=== PATIENT | female | born 1970 | race Caucasian/White ===

== ENCOUNTER 2018-11-05 11:11 | Emergency (ER) | payer MEDICAID, MEDICARE ==
[2018-11-05 11:29] VITALS: BP 121/76
--- NOTE | 2018-11-05 11:35 | UC ---
Respiratory Complaint HPI - HPI Summary HPI Summary: 48-year-old female presents with 3 day history of productive cough. Associated with some nasal congestion and bilateral ear fullness. States she has seasonal allergies and has missed her medications for a couple of days. Also reports several coworkers with similar symptoms. + smoker. Denies fever, chills, sore throat, chest pain, or shortness of breath. - History of Current Complaint Chief Complaint: UCRespiratory Stated Complaint: CHEST CONGESTION Hx Obtained From: Patient Hx Last Menstrual Period: 10/10/18 Pain Intensity: 0 - Allergies/Home Medications Allergies/Adverse Reactions: Allergies Allergy/AdvReac Type Severity Reaction Status Date / Time banana Allergy Anaphylatic Verified 11/05/18 11:20 Shock codeine Allergy See Comment Verified 11/05/18 11:20 latex Allergy Anaphylatic Verified 11/05/18 11:20 Shock bee Allergy Anaphylatic Uncoded 11/05/18 11:20 Shock Home Medications: Home Medications EPINEPHrine [Epipen] 1 syringe ONCE 11/05/18 [History Confirmed 11/05/18] Fluticasone NASAL SPRAY 50MCG* [Flonase NASAL SPRAY 50MCG*] 2 spray BOTH NARES DAILY 11/05/18 [History Confirmed 11/05/18] Gabapentin CAP(*) [Neurontin 100 mg CAP(*)] 100 mg PO TID 11/05/18 [History Confirmed 11/05/18] Hydrocodone/Acetaminophen [Hydrocodone/Acetaminophen 10-325 mg] 1 tab PO BID [History Confirmed 11/05/18] Montelukast Sodium TAB* [Singulair TAB*] 10 mg PO BEDTIME 11/05/18 [History Confirmed 11/05/18] Morphine Sulfate 15 mg BID 11/05/18 [History Confirmed 11/05/18] hydrOXYzine HCL TAB* [Atarax 10 MG TAB*] 10 mg PO QID PRN 11/05/18 [History Confirmed 11/05/18] tiZANidine TAB* [Zanaflex TAB*] 4 mg PO TID 11/05/18 [History Confirmed 11/05/18 ] PMH/Surg Hx/FS Hx/Imm Hx - Additional Past Medical History Additional PMH: Chronic pain, seasonal allergies Other History Of: Negative For: HIV, Hepatitis B, Hepatitis C, Anticoagulant Therapy - Surgical History Surgical History: Yes Surgery Procedure, Year, and Place: Cholecystectomy, 2014, [facility]. L4 L5 S1 Fusion, 2008, [facility]. Tubal Ligation, 2004 or 2005, [facility]. Kidney Stones, 2004 , [facility] - Family History Known Family History: Positive: None - Social History Occupation: Disabled Lives: With Family Alcohol Use: Rare Substance Use Type: Prescribed Substance Use Comment - Amount & Last Used: Lyrica, Morphine, Oxycodone Smoking Status (MU): Heavy Every Day Tobacco Smoker Type: Cigarettes Amount Used/How Often: 1 PPD Length of Time of Smoking/Using Tobacco: On and Off Have You Smoked in the Last Year: Yes Review of Systems All Other Systems Reviewed And Are Negative: Yes Constitutional: Negative: Fever, Chills Eyes: Negative: Drainage, Eye Redness ENT: Positive: Ear Ache, Nasal Discharge, Sinus Congestion. Negative: Sore Throat, Sinus Pain/Tenderness Respiratory: Positive: Cough. Negative: Shortness Of Breath Cardiovascular: Negative: Palpitations, Chest Pain Gastrointestinal: Negative: Abdominal Pain, Vomiting, Diarrhea, Nausea Genitourinary: Positive: Negative Musculoskeletal: Positive: Negative Neurological: Positive: Negative Is Patient Immunocompromised?: No Physical Exam - Summary Physical Exam Summary: GENERAL APPEARANCE: Alert and cooperative adult female who appears older than stated age and is in no acute distress. EYES: Conjunctiva clear. No drainage. EARS: External auditory canals and tympanic membranes clear, hearing grossly intact. NOSE: Mild nasal congestion. No nasal discharge. THROAT: Pharynx normal. No tonsilar inflammation, swelling, exudate, or lesions. Uvula midline. NECK: Neck supple, non-tender without lymphadenopathy. CARDIAC: Normal S1 and S2. No S3, S4 or murmurs. Rhythm is regular. There is no peripheral edema, cyanosis or pallor. Extremities are warm and well perfused. Capillary refill is less than 2 seconds. Peripheral pulses intact. LUNGS: Clear to auscultation without rales, rhonchi, wheezing or diminished breath sounds. ABDOMEN: Positive bowel sounds. Soft, nondistended, nontender. No guarding or rebound. No masses or hepatosplenomegally. MUSKULOSKELETAL: ROM intact to all extremities. No joint erythema or tenderness. Normal muscular development. Normal gait. SKIN: Skin normal color, texture and turgor with no lesions or eruptions. Triage Information Reviewed: Yes Vital Signs: Initial Vital Signs Temp 98.1 F 11/05/18 11:23 Pulse 85 11/05/18 11:23 Resp 16 11/05/18 11:23 BP 121/76 11/05/18 11:23 Pulse Ox 100 11/05/18 11:23 Vital Signs Reviewed: Yes Respiratory Course/Dx - Course Course Of Treatment: 48-year-old female presents with 3 day history of productive cough. Associated with some nasal congestion and bilateral ear fullness. States she has seasonal allergies and has missed her medications for a couple of days. Also reports several coworkers with similar symptoms. + smoker. Denies fever, chills, sore throat, chest pain, or shortness of breath. Afebrile. Vital signs stable. Patient and some mild/moderate nasal congestion and otherwise unremarkable exam. Recommending symptomatic treatment for URI versus seasonal allergies. She has an appointment scheduled with her primary care provider next week and is encouraged to keep that appointment. Anticipatory guidance and warning symptoms were reviewed with the patient. Verbalizes understanding and agrees with plan of care. - Differential Dx/Diagnosis Differential Diagnosis/HQI/PQRI: Bronchitis, Lower Resp Infection, Other - URI, seasonal allergies Provider Diagnosis: URI (upper respiratory infection) Discharge - Sign-Out/Discharge Documenting (check all that apply): Patient Departure All imaging exams completed and their final reports reviewed: No Studies - Discharge Plan Condition: Stable Disposition: HOME Prescriptions: Benzonatate CAP* [Tessalon 100 MG CAP*] 100 mg PO TID PRN #30 cap PRN Reason: Cough Patient Education Materials: Upper Respiratory Infection (ED) Forms: *Work Release Referrals: Vasiliy Fitzpatrick [Primary Care Provider] - Additional Instructions: Your history and exam are consistent with a viral upper respiratory infection or possible seasonal allergies. Viral infections and allergies do not respond to antibiotics and are limited to the treatment of symptoms. Viral infections typically run their course in 7-10 days. Drink plenty of fluids. Use a saline rinse kit such as Neti Pot or NeilMed at least twice a day to help thin secretions and promote drainage of the sinuses. Continue to use fluticasone (Flonase) nasal spray 2 sprays each nostril once daily. Continue to use your montelucast as directed. Take Tessalon Perles 1 cap every 8 hours as needed for cough. Take over the counter acetaminophen (Tylenol) or ibuprofen (Advil, Motrin) according to directions as needed for pain or fever. Follow up with your primary care provider next week as scheduled. Seek immediate medical attention in the emergency room if you have fever greater than 100.5 F despite taking acetaminophen or ibuprofen, have chest pain , difficulty breathing, are unable to swallow, or have any worsening of symptoms. - Billing Disposition and Condition Condition: STABLE Disposition: Home
== END 2018-11-05 11:56 | disposition home or self-care (01) ==
LOC: UCCORT 11:11
DX: J06.9 Acute upper respiratory infection, unspecified (principal); F17.210 Nicotine dependence, cigarettes, uncomplicated; Z79.899 Other long term (current) drug therapy
CPT/HCPCS: 99202; G0463

== ENCOUNTER 2018-11-11 18:26 | Emergency (ER) | payer MEDICARE ==
[2018-11-11 19:01] VITALS: BP 130/78
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
== END 2018-11-11 20:34 | disposition home or self-care (01) ==
LOC: UCCORT 18:26
DX: G89.29 Other chronic pain (principal); M54.5 Low back pain; M48.061 Spinal stenosis, lumbar region without neurogenic claudication; N39.0 Urinary tract infection, site not specified; Z87.442 Personal history of urinary calculi; F17.210 Nicotine dependence, cigarettes, uncomplicated
CPT/HCPCS: 81003; 87077; 87086; 87186; 99212; G0463

== ENCOUNTER 2018-11-16 10:36 | Emergency (ER) | payer MEDICARE ==
[2018-11-16 11:02] VITALS: BP 113/74
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
[2018-11-16 20:28] LABS: HIV 4th Generation Negative (Negative)
== END 2018-11-16 11:54 | disposition home or self-care (01) ==
LOC: UCCORT 10:36
DX: M54.5 Low back pain (principal); G89.29 Other chronic pain; F17.210 Nicotine dependence, cigarettes, uncomplicated
CPT/HCPCS: 36415; 87389; 99212; G0463